=== PATIENT | male | born 1995 | race Caucasian/White ===

== ENCOUNTER 2024-05-02 09:56 | Observation (INO) | payer OTHER, SELFPAY ==
[2024-05-02] VITALS (76 sets, daily range): BP systolic 104–173; BP diastolic 57–101; PULSE 53–80; RESP 13–29; TEMP 36.2–36.9; O2SAT 96–100; BMI 21.7; BMI 21.3
--- NOTE | 2024-05-02 10:16 | DI.RAD.S_ITS ---
PROCEDURE: XR PELVIS 1-2V INDICATIONS: trauma TECHNIQUE: 1 view(s) of the pelvis acquired. COMPARISON: None. FINDINGS: Bones: No fractures or dislocations. No suspicious bony lesions. Soft tissues: Visualized bowel gas pattern is normal. No suspicious soft tissue calcifications. IMPRESSION: No acute bony abnormality. Dictated by: Haroldo Fong M.D. on 05/02/2024 at 10:44 Approved by: Haroldo Fong M.D. on 05/02/2024 at 10:45
--- NOTE | 2024-05-02 10:16 | DI.CT.S_ITS ---
PROCEDURE: CT CHEST ABD PEL W CON INDICATIONS: fall TECHNIQUE: After the administration of intravenous contrast, 5 mm thick sections acquired from the lung apices to the symphysis. 2.5 mm thick coronal and sagittal reformats were acquired. Additional 7 mm thick coronal maximum intensity projection (MIP) reformats acquired through the lungs. Optional 10-minute delayed imaging may be performed from the kidneys to the bladder. For radiation dose reduction, the following was used: automated exposure control, adjustment of mA and/or kV according to patient size. COMPARISON: None. FINDINGS: Image quality: Diagnostic. CHEST: Lower Neck: No enlarged lymph nodes. Thyroid: No thyroid nodules which require sonographic evaluation. Axillae: No enlarged lymph nodes. Chest Wall: No subcutaneous gas. Lungs and Pleura: No pulmonary contusions or lacerations. No acute airspace opacities. No pneumothorax or hemothorax. Mediastinum: No mediastinal hematomas. Heart size is normal. No pericardial effusion. Thoracic aorta and pulmonary arteries demonstrate normal size and enhancement. No mediastinal or hilar adenopathy. Esophagus is normal in caliber. No hiatal hernia. ABDOMEN: Liver: No lacerations. Gallbladder: No radiopaque gallstones or wall thickening. Biliary ducts: No biliary dilation. Pancreas: Homogenous enhancement. Spleen: Homogenous enhancement without laceration or hematoma. Adrenal Glands: Symmetric enhancement. Kidneys and Ureters: Symmetric enhancement. No hydronephrosis. No solid mass. No complex renal cystic lesion which requires follow up. Stomach and Bowel: Normal colonic caliber, without significant wall thickening. Moderate fecal stasis in the colon is seen. Peritoneum: No abnormal intraperitoneal fluid. No free air. Ventral Wall: No hernia. Abdominal Nodes: No retroperitoneal or mesenteric adenopathy by size criteria. Vessels: Aorta and inferior vena cava are normal in size. PELVIS: Pelvic Organs: Unremarkable. Bladder: Normal thickness. Pelvic Nodes: No enlarged lymph nodes. Miscellaneous: No inguinal hernias are seen. Bones: Pelvic ring and hip joints appear intact. No displaced rib fractures. IMPRESSION: No evidence of traumatic injury to the chest, abdomen or pelvis. Dictated by: Madhu Goldsmith M.D. on 05/02/2024 at 10:39 Approved by: Madhu Goldsmith M.D. on 05/02/2024 at 10:41
--- NOTE | 2024-05-02 10:17 | DI.CT.S_ITS ---
PROCEDURE: CT CERVICAL SPINE WO CON INDICATIONS: Trauma TECHNIQUE: Noncontrast 3 mm thick sections acquired from the skull base to the T4 level. Sagittal and coronal reformats were then constructed. For radiation dose reduction, the following was used: automated exposure control, adjustment of mA and/or kV according to patient size. COMPARISON: None. FINDINGS: Image quality: Excellent. Bones: No fractures or dislocations. Visualized superior ribs are intact. Soft tissues: Prevertebral soft tissues are normal in thickness. No paravertebral hematomas. No apical pneumothoraces. IMPRESSION: No displaced fracture or traumatic subluxation. Dictated by: Madhu Goldsmith M.D. on 05/02/2024 at 10:35 Approved by: Madhu Goldsmith M.D. on 05/02/2024 at 10:39
--- NOTE | 2024-05-02 10:17 | DI.CT.S_ITS ---
PROCEDURE: CT HEAD/BRAIN WO CON INDICATIONS: Trauma TECHNIQUE: Noncontrast 4.5 mm thick angled axial sections acquired from the foramen magnum to the vertex, with coronal and sagittal reformats. For radiation dose reduction, the following was used: automated exposure control, adjustment of mA and/or kV according to patient size. COMPARISON: None. FINDINGS: Image quality: Diagnostic. CSF spaces: Basal cisterns are patent. No extra-axial fluid collections. Ventricles are normal in size and shape. Brain: No midline shift. No intracranial masses or hemorrhage. Ronquillo-white matter interface is normal. Skull and face: Calvarium and visualized facial bones are intact, without suspicious lesions. Sinuses: Visualized sinuses and mastoids are clear. IMPRESSION: No acute intracranial pathology. No acute skull fracture. Dictated by: Madhu Goldsmith M.D. on 05/02/2024 at 10:34 Approved by: Madhu Goldsmith M.D. on 05/02/2024 at 10:35
--- NOTE | 2024-05-02 10:27 | EKG_ITS ---
[address] [id number] Test Date: 2024-05-02 Pat Name: Marlo Coon Department: Room: 220 Gender: Male Vp Analysis: JUANITA : 1995 Requested By: Order Number: [id number] Reading MD: Tal Joshua Measurements Intervals [place] Rate: 68 P: 34 WI: 120 QRS: 91 QRSD: 110 T: 60 QT: 426 QTc: 452 Interpretive Statements Normal sinus rhythm Rightward axis Electronically Signed On 05-04-2024 18:28:39 PDT by Tal Joshua
[2024-05-02 10:28] LABS: Add Manual Diff / Slide Review NO; Basophils Absolute Auto 0 /uL (0-100); Basophils Percent Auto 0.6 % (0-2); Eosinophils Absolute Auto 100 /uL (0-450); Eosinophils Percent Auto 1.1 % (2-4); Hematocrit 36.2 % (41-53); Hemoglobin 12.2 g/dL (13.5-17.5); Lymphocytes Absolute Auto 1400 /uL (1100-4500); Lymphocytes Percent Auto 20.3 % (25-40); Mean Corpuscular HGB Conc 33.8 % (30-36); Mean Corpuscular Hemoglobin 26.5 PG (26-34); Mean Corpuscular Volume 78.2 fL (80-100); Monocytes Absolute Auto 700 /uL (0-900); Monocytes Percent Auto 9.8 % (3-14); Neutrophils Absolute Auto 4600 /uL (1500-7000); Neutrophils Percent Auto 68.2 % (50-75); Platelet Count 254 X10^3/uL (150-400); Prothrombin Time 11.7 SECONDS (9.4-12.5); Red Blood Cell Count 4.63 X10^6/uL (4.5-5.9); White Blood Cell Count 6.7 X10^3/uL (4.5-11.0)
[2024-05-02 10:31] LABS: PTT Partial Thromboplastin Tim 36 SECONDS (25.1-36.5)
[2024-05-02] MEDS: ONDANSETRON 4 MG/2 ML INJ IV (10:47)
[2024-05-02] MEDS: fentaNYL 100 MCG/2 ML INJ IV (10:49)
[2024-05-02 10:56] LABS: Appearance Urine UA CLEAR; Bilirubin Urine UA NEGATIVE (NEGATIVE); Color Urine UA YELLOW; Glucose Urine UA NEGATIVE (Negative); Ketones Urine UA NEGATIVE (NEGATIVE); Leukocyte Esterase Urine UA NEGATIVE (NEGATIVE); Nitrite Urine UA NEGATIVE (Negative); Occult Blood Urine UA NEGATIVE (Negative); Protein Urine UA NEGATIVE (Negative); Urobilinogen Urine UA 0.2 E.U./dL (0.2); pH Urine UA 6.5 (4.5-8.0)
[2024-05-02 10:59] LABS: Lactate (Lactic Acid) 1.2 mmol/L (0.7-2.1)
[2024-05-02 11:02] LABS: Alanine Aminotransferase 26 IU/L (<50); Albumin 4.4 g/dL (3.5-5.0); Albumin Globulin Ratio 1.9 (1.0-2.8); Alkaline Phosphatase 55 U/L (38-126); Aspartate Aminotransferase 45 IU/L (17-59); BUN Creatinine Ratio 14.8 (6-22); Bilirubin Total 0.5 mg/dL (0.2-1.3); Blood Urea Nitrogen 13 mg/dL (9-20); Carbon Dioxide 27 mmol/L (22-32); Chloride 103 mmol/L (98-107); Estimated Glomerular Filt Rate > 60 mL/min (>60); Ethanol (ETOH) < 10 mg/dL; Globulin 2.3 g/dL (1.7-4.1); Glucose 83 mg/dL (70-100); HEMOLYSIS 30 (0-50); Lipase 45 U/L (23-300); Potassium 3.6 mmol/L (3.4-5.1); Sodium 137 mmol/L (137-145); Total Protein 6.7 g/dL (6.3-8.2)
--- NOTE | 2024-05-02 11:03 | DI.RAD.S_ITS ---
PROCEDURE: XR WRIST RT 2V INDICATIONS: trauma TECHNIQUE: 3 views of the wrist were acquired. COMPARISON: None. FINDINGS: Bones: No fractures or dislocations. No suspicious bony lesions. Soft tissues: No suspicious soft tissue calcifications. IMPRESSION: No gross acute right wrist fracture or dislocation. Dictated by: Madhu Goldsmith M.D. on 05/02/2024 at 11:34 Approved by: Madhu Goldsmith M.D. on 05/02/2024 at 11:35
[2024-05-02 11:15] LABS: Ur Creatinine Normal (Normal); Ur Specific Gravity Normal (Normal); Urine Amphetamines Negative (Negative); Urine Barbiturates Negative (Negative); Urine Benzodiazepines Negative (Negative); Urine Cocaine Negative (Negative); Urine MDMA Negative (Negative); Urine Methadone Negative (Negative); Urine Methamphetamines Negative (Negative); Urine Opiates Negative (Negative); Urine Oxycodone Negative (Negative); Urine Phencyclidine Negative (Negative); Urine THC Negative (Negative); Urine Tricyclic Antidepressant Negative (Negative); Urine pH Normal (Normal)
[2024-05-02 11:24] LABS: Bacteria Urine None Seen; RBC Urine None Seen (0-5/HPF); Squamous Epithelial Cell Urine None Seen (0-5/HPF); Urine Volume 10mL (spun); WBC Urine None Seen (0-5/HPF)
[2024-05-02 11:25] LABS: Amorphous Sediment Urine 1+; Culture Indicated Urine Cult Not Indicated
--- NOTE | 2024-05-02 11:47 | ED.GENADULT ---
HPI - General Adult General Chief complaint: Trauma Stated complaint: 15-20ft fall Time Seen by Provider: 05/02/24 09:58 Source: EMS Mode of arrival: EMS History of Present Illness HPI narrative: 29-year-old gentleman with only medical history significant for opioid use disorder currently in treatment is stable on 60 mg of Suboxone daily. Was at work, on a 2nd floor roof and ended up falling majority of the injury was to the left hip which is where his main complaint pain is. There was no loss of consciousness no initial hypotension. He has not complaining initially of head or neck pain. On arrival in the emergency department he is immobilized, continued complain of left hip pain in his now noticing some back and neck pain. He is moving all extremities and has sensation with good capillary refill to all extremities Related Data Home Medications Medication Instructions Recorded Confirmed buprenorphine 4 mg-naloxone 1 mg 4 mg sublingual BID 05/02/24 05/02/24 sublingual film buprenorphine 8 mg-naloxone 2 mg 8 mg sublingual DAILY 05/02/24 05/02/24 sublingual film hydroxyzine pamoate 25 mg capsule 25 mg PO DAILY PRN anxiety 05/02/24 05/02/24 prazosin 1 mg capsule 1 mg PO ONCE PM insomnia 05/02/24 05/02/24 trazodone 50 mg tablet 50 mg PO BEDTIME PRN Insomnia 05/02/24 05/02/24 Allergies Allergy/AdvReac Type Severity Reaction Status Date / Time No Known Drug Allergies Allergy Verified 05/02/24 10:15 Review of Systems Review of Systems Narrative: Pertinent positive and negative findings as per HPI Patient History Medical History (Updated 05/02/24 @ 17:08 by Tal Joshua DO) Alcohol use Opiate use Social History (Updated 05/02/24 @ 17:09 by Tal Joshua DO) household members: family Smoking Status: Current every day smoker Smokeless tobacco user: other alcohol intake: former substance use type: opiates and other Smoking Status: Former smoker tobacco type: cigarettes Exam Initial Vital Signs Initial Vital Signs: Vital Signs Temperature 98.4 F 05/02/24 09:45 Pulse Rate 68 05/02/24 09:45 Respiratory Rate 18 05/02/24 09:45 Blood Pressure 166/97 H 05/02/24 09:45 Pulse Oximetry 99 05/02/24 09:45 Oxygen Delivery Method Room Air 05/02/24 09:45 General: Immobilized, alert appropriate, cooperative. HEENT: Moist mucous membranes, normal sclera with reactive pupils, no obvious trauma to the head or face Neck: Immobilized Respiratory: Lungs are clear to auscultation, no wheezing no rales no rhonchi. Full and symmetrical air movement Chest: No obvious abrasions contusions or subcutaneous air Cardiac: Regular rate and rhythm no murmurs no bruits Abdomen: Soft, no distention, no obvious bruising or contusion. Minor tenderness in the left lower quadrant, over the left iliac crest and left flank. No tenderness over pubic symphysis. Remainder of abdomen is soft Spine: Tenderness at approximately T6-T8 and again in the lumbar area related to pelvis and SI joint Skin: Warm and dry, no rashes Neurologic: Grossly neurologically intact with no obvious asymmetries or abnormalities. Moving lower extremities, sensation intact. There was tenderness at the right wrist and that is immobilized. Extremities: Right wrist pain, currently immobilized Psych: Cooperative, appropriate insight and affect Course Orders Ordered: ED Orders 05/02/24 10:38 UA Complete [Urinalysis and Microscopic] Stat Urine Drug Screen, Rapid Stat 05/02/24 11:03 XR wrist RT 2V Stat 05/02/24 12:09 Hemoglobin and Hematocrit Stat 05/02/24 14:12 Consult to Physical Therapy Evaluate & Treat 05/02/24 17:33 Consult to Physical Therapy Evaluate & Treat 05/03/24 05:00 Basic Metabolic Panel DAILY Complete Blood Count AUTO DIFF DAILY Magnesium DAILY 05/04/24 05:00 Basic Metabolic Panel DAILY Complete Blood Count AUTO DIFF DAILY Magnesium DAILY 05/05/24 05:00 Basic Metabolic Panel DAILY Complete Blood Count AUTO DIFF DAILY Magnesium DAILY Acetaminophen (Acetaminophen 325 Mg Tablet) 975 mg PO Q6H [facility] Last Admin: 05/02/24 14:36 Dose: 975 mg Documented By: DKB Buprenorphine/Naloxone (Buprenorphine/Naloxone 8mg/2mg 1 Tab) 1 tab SL QNOON [facility] Buprenorphine/Naloxone (Buprenorphine/Naloxone 8mg/2mg 1 Tab) 0.5 tab SL DAILY@0500,1700 [facility] Last Admin: 05/02/24 18:26 Dose: 0.5 tab Documented By: SB Enoxaparin Sodium (Enoxaparin 40 Mg/0.4 Ml Syringe) 40 mg SUBCUT DAILY [facility] Hydromorphone HCl (Hydromorphone 2 Mg Inj) 2 mg IV Q2H PRN PRN Reason: Breakthrough Pain Naloxone HCl (Naloxone 0.4 Mg/Ml Vial) 0.2 mg IV Q2MIN PRN PRN Reason: Opiate Reversal Naproxen (Naproxen 250 Mg Tablet) 500 mg PO BIDWM [facility] Last Admin: 05/02/24 18:04 Dose: 500 mg Documented By: CORA Oxycodone HCl (Oxycodone Ir 10 Mg Tablet) 10 mg PO Q4HR PRN PRN Reason: Pain, Severe (7-10) Last Admin: 05/02/24 18:04 Dose: 10 mg Documented By: CORA Discontinued Medications Fentanyl (Fentanyl 100 Mcg/2 Ml Inj) 100 mcg IV NOW ONE Stop: 05/02/24 10:16 Last Admin: 05/02/24 10:49 Dose: 100 mcg Documented By: RODRIGUEZ Fentanyl (Fentanyl 100 Mcg/2 Ml Inj) 50 mcg IV Q1H PRN PRN Reason: Pain, Severe (7-10) Last Admin: 05/02/24 12:02 Dose: 50 mcg Documented By: RODRIGUEZ Hydromorphone HCl (Hydromorphone 2 Mg Inj) 2 mg IV Q2H PRN PRN Reason: Pain, Severe (7-10) Hydroxyzine HCl (Hydroxyzine Hcl 25 Mg Tablet) 25 mg PO Q6HR PRN PRN Reason: spasm Last Admin: 05/02/24 14:37 Dose: 25 mg Documented By: SAV Ketorolac Tromethamine (Ketorolac 30 Mg/Ml Vial) 15 mg IV NOW ONE Stop: 05/02/24 14:13 Last Admin: 05/02/24 14:18 Dose: 15 mg Documented By: SAV Ketorolac Tromethamine (Ketorolac 30 Mg/Ml Vial) 15 mg IV NOW ONE Stop: 05/02/24 14:36 Last Admin: 05/02/24 14:49 Dose: Not Given Documented By: SAV Methocarbamol (Methocarbamol 500 Mg Tablet) 750 mg PO NOW ONE Stop: 05/02/24 14:37 Last Admin: 05/02/24 17:55 Dose: Not Given Documented By: CORA Ondansetron HCl (Ondansetron 4 Mg/2 Ml Inj) 4 mg IV NOW ONE Stop: 05/02/24 10:17 Last Admin: 05/02/24 10:47 Dose: 4 mg Documented By: RODRIGUEZ Oxycodone HCl (Oxycodone Ir 5 Mg Tablet) 5 mg PO NOW ONE Stop: 05/02/24 14:37 Last Admin: 05/02/24 15:06 Dose: 5 mg Documented By: SAV Vital Signs Vital signs: Vital Signs - 8 hr 05/02/24 12:00 05/02/24 12:05 05/02/24 12:05 Pulse Rate 66 Respiratory Rate 21 Blood Pressure 126/76 130/75 Pulse Oximetry 98 05/02/24 12:10 05/02/24 12:10 05/02/24 12:15 Pulse Rate 67 Respiratory Rate 24 Blood Pressure 127/76 121/72 Pulse Oximetry 98 05/02/24 12:15 05/02/24 12:20 05/02/24 12:20 Pulse Rate 72 66 Respiratory Rate 24 22 Blood Pressure 121/76 Pulse Oximetry 99 98 05/02/24 12:25 05/02/24 12:25 05/02/24 12:30 Pulse Rate 66 Respiratory Rate 19 Blood Pressure 119/79 132/85 Pulse Oximetry 96 05/02/24 12:30 05/02/24 12:35 05/02/24 12:35 Pulse Rate 65 73 Respiratory Rate 24 Blood Pressure 128/82 Pulse Oximetry 98 99 05/02/24 12:40 05/02/24 12:40 05/02/24 12:45 Pulse Rate 80 Respiratory Rate 20 Blood Pressure 130/86 130/81 Pulse Oximetry 99 05/02/24 12:45 05/02/24 12:50 05/02/24 12:50 Pulse Rate 67 68 Respiratory Rate Blood Pressure 134/84 Pulse Oximetry 97 96 05/02/24 12:55 05/02/24 12:55 05/02/24 13:00 Pulse Rate 70 Respiratory Rate 21 Blood Pressure 118/71 124/73 Pulse Oximetry 99 05/02/24 13:00 05/02/24 13:05 05/02/24 13:05 Pulse Rate 68 66 Respiratory Rate 17 Blood Pressure 128/75 Pulse Oximetry 98 99 05/02/24 13:16 05/02/24 13:17 05/02/24 13:17 Pulse Rate 75 69 Respiratory Rate 17 Blood Pressure 141/76 H Pulse Oximetry 96 97 05/02/24 13:20 05/02/24 13:20 05/02/24 13:25 Pulse Rate 67 Respiratory Rate 17 Blood Pressure 128/73 120/72 Pulse Oximetry 97 05/02/24 13:25 05/02/24 13:30 05/02/24 13:30 Pulse Rate 68 68 Respiratory Rate 21 21 Blood Pressure 123/74 Pulse Oximetry 97 97 05/02/24 13:35 05/02/24 13:35 05/02/24 13:40 Pulse Rate 75 Respiratory Rate Blood Pressure 122/71 134/78 Pulse Oximetry 98 05/02/24 13:40 05/02/24 13:45 05/02/24 13:45 Pulse Rate 79 75 Respiratory Rate 19 Blood Pressure 132/78 Pulse Oximetry 05/02/24 13:50 05/02/24 13:50 05/02/24 13:55 Pulse Rate 68 Respiratory Rate 17 Blood Pressure 132/75 131/81 Pulse Oximetry 05/02/24 13:55 05/02/24 14:00 05/02/24 14:00 Pulse Rate 68 70 Respiratory Rate 19 24 Blood Pressure 124/76 Pulse Oximetry 05/02/24 14:05 05/02/24 14:05 05/02/24 14:10 Pulse Rate 67 Respiratory Rate 21 Blood Pressure 115/69 124/69 Pulse Oximetry 05/02/24 14:10 05/02/24 14:15 05/02/24 14:15 Pulse Rate 66 76 Respiratory Rate 24 16 Blood Pressure 132/81 Pulse Oximetry 05/02/24 14:20 05/02/24 14:20 05/02/24 14:25 Pulse Rate 63 Respiratory Rate 13 Blood Pressure 136/71 130/71 Pulse Oximetry 05/02/24 14:25 05/02/24 14:30 05/02/24 14:30 Pulse Rate 67 69 Respiratory Rate 23 22 Blood Pressure 127/69 Pulse Oximetry 05/02/24 14:35 05/02/24 14:35 05/02/24 14:40 Pulse Rate 70 67 Respiratory Rate 22 22 Blood Pressure 122/76 Pulse Oximetry 05/02/24 14:40 05/02/24 14:45 05/02/24 14:45 Pulse Rate 66 Respiratory Rate 24 Blood Pressure 115/72 115/73 Pulse Oximetry 05/02/24 14:50 05/02/24 14:50 05/02/24 14:55 Pulse Rate 65 Respiratory Rate 23 Blood Pressure 118/73 117/71 Pulse Oximetry 05/02/24 14:55 05/02/24 15:00 05/02/24 15:00 Pulse Rate 66 61 Respiratory Rate 21 22 Blood Pressure 113/64 Pulse Oximetry 05/02/24 15:05 05/02/24 15:05 05/02/24 15:10 Pulse Rate 62 Respiratory Rate 21 Blood Pressure 113/74 113/70 Pulse Oximetry 05/02/24 15:10 05/02/24 15:15 05/02/24 15:15 Pulse Rate 61 65 Respiratory Rate 21 19 Blood Pressure 121/74 Pulse Oximetry 05/02/24 15:20 05/02/24 15:20 05/02/24 15:25 Pulse Rate 62 61 Respiratory Rate 19 17 Blood Pressure 115/70 Pulse Oximetry 05/02/24 15:25 05/02/24 15:30 05/02/24 15:30 Pulse Rate 63 Respiratory Rate 20 Blood Pressure 123/72 114/57 L Pulse Oximetry 05/02/24 15:35 05/02/24 15:35 05/02/24 15:40 Pulse Rate 63 59 L Respiratory Rate 20 23 Blood Pressure 128/83 Pulse Oximetry 05/02/24 15:40 05/02/24 15:45 05/02/24 15:45 Pulse Rate 67 Respiratory Rate 20 Blood Pressure 120/79 125/78 Pulse Oximetry 05/02/24 15:50 05/02/24 15:50 05/02/24 15:55 Pulse Rate 68 Respiratory Rate 25 H Blood Pressure 120/80 115/75 Pulse Oximetry 05/02/24 15:55 05/02/24 16:00 05/02/24 16:00 Pulse Rate 59 L 59 L Respiratory Rate 21 21 Blood Pressure 118/72 Pulse Oximetry 05/02/24 16:05 05/02/24 16:05 05/02/24 16:10 Pulse Rate 61 62 Respiratory Rate 22 20 Blood Pressure 116/70 Pulse Oximetry 05/02/24 16:10 05/02/24 16:15 05/02/24 16:15 Pulse Rate 57 L Respiratory Rate 20 Blood Pressure 117/69 111/64 Pulse Oximetry 05/02/24 16:20 05/02/24 16:20 05/02/24 16:25 Pulse Rate 62 74 Respiratory Rate 13 29 H Blood Pressure 120/75 Pulse Oximetry 05/02/24 16:26 05/02/24 16:26 05/02/24 16:30 Pulse Rate 64 60 Respiratory Rate 17 19 Blood Pressure 130/101 H Pulse Oximetry 05/02/24 16:31 05/02/24 16:31 05/02/24 16:35 Pulse Rate 60 Respiratory Rate 21 Blood Pressure 155/84 H 125/65 Pulse Oximetry 05/02/24 16:35 Pulse Rate 60 Respiratory Rate 21 Blood Pressure Pulse Oximetry Medical Decision Making Lab Data 05/02/24 12:09 05/02/24 10:06 Labs: Lab Results 05/02/24 05/02/24 05/02/24 Range/Units 10:06 10:38 10:38 WBC 6.7 (4.5-11.0) X10^3/uL RBC 4.63 (4.5-5.9) X10^6/uL Hgb 12.2 L (13.5-17.5) g/dL Hct 36.2 L (41-53) % MCV 78.2 L (80-100) fL MCH 26.5 (26-34) PG MCHC 33.8 (30-36) % RDW 13.0 (11.6-14.8) % Plt Count 254 (150-400) X10^3/uL Neut % (Auto) 68.2 (50-75) % Lymph % (Auto) 20.3 L (25-40) % [place] % (Auto) 9.8 (3-14) % Eos % (Auto) 1.1 L (2-4) % Baso % (Auto) 0.6 (0-2) % Neut # (Auto) 4600 (6460-5923) /uL Lymph # (Auto) 1400 (4424-3897) /uL [place] # (Auto) 700 (0-900) /uL Eos # (Auto) 100 (0-450) /uL Baso # (Auto) 0 (0-100) /uL PT 11.7 (9.4-12.5) SECONDS INR 1.0 (0.9-1.3) APTT 36 (25.1-36.5) SECONDS Sodium 137 (137-145) mmol/L Potassium 3.6 (3.4-5.1) mmol/L Chloride 103 (98-107) mmol/L Carbon Dioxide 27 (22-32) mmol/L BUN 13 (9-20) mg/dL Creatinine 0.88 (0.66-1.25) mg/dL Estimated GFR > 60 (>60) mL/min BUN/Creatinine Ratio 14.8 (6-22) Glucose 83 (70-100) mg/dL Lactate 1.2 (0.7-2.1) mmol/L Calcium 9.0 (8.4-10.2) mg/dL Total Bilirubin 0.5 (0.2-1.3) mg/dL AST 45 (17-59) IU/L ALT 26 (<50) IU/L Alkaline Phosphatase 55 (38-126) U/L Total Protein 6.7 (6.3-8.2) g/dL Albumin 4.4 (3.5-5.0) g/dL Globulin 2.3 (1.7-4.1) g/dL Albumin/Globulin Ratio 1.9 (1.0-2.8) Lipase 45 (23-300) U/L Urine Color Yellow Urine Appearance Clear Urine pH 6.5 Normal (4.5-8.0) Ur Specific [place] 1.010 (1.000-1.035) Urine Protein Negative (Negative) Urine Glucose (UA) Negative (Negative) g/dL Urine Ketones Negative (NEGATIVE) Urine Occult Blood Negative (Negative) Urine Nitrate Negative (Negative) Urine Bilirubin Negative (NEGATIVE) Urine Urobilinogen 0.2 (0.2) E.U./dL Ur Leukocyte Esterase Negative (NEGATIVE) Urine RBC None seen (0-5/HPF) Urine WBC None seen (0-5/HPF) Ur Squamous Epith Cells None seen (0-5/HPF) Amorphous Sediment 1+ Urine Bacteria None seen (None) Ur Culture Indicated? Cult not indicated Vol Urine Centrifuged 10ml (spun) U Opiates 300ng/mL cut Negative (Negative) Ur Oxycodone Screen Negative (Negative) Urine Methadone Screen Negative (Negative) Ur Barbiturates Screen Negative (Negative) U Tricyclic Antidepress Negative (Negative) Ur Phencyclidine Scrn Negative (Negative) Ur Amphetamines Screen Negative (Negative) U Methamphetamines Scrn Negative (Negative) Ur MDMA Scrn (Ecstasy) Negative (Negative) U Benzodiazepines Scrn Negative (Negative) Urine Cocaine Screen Negative (Negative) U Marijuana (THC) Screen Negative (Negative) Urine Specific [place] Normal (Normal) Ethyl Alcohol < 10 ( - 10) mg/dL Ur Creatinine Normal (Normal) Blood Type O Negative Antibody Screen Negative 05/02/24 Range/Units 12:09 WBC (4.5-11.0) X10^3/uL RBC (4.5-5.9) X10^6/uL Hgb 12.7 L (13.5-17.5) g/dL Hct 37.5 L (41-53) % MCV (80-100) fL MCH (26-34) PG MCHC (30-36) % RDW (11.6-14.8) % Plt Count (150-400) X10^3/uL Neut % (Auto) (50-75) % Lymph % (Auto) (25-40) % [place] % (Auto) (3-14) % Eos % (Auto) (2-4) % Baso % (Auto) (0-2) % Neut # (Auto) (7636-5045) /uL Lymph # (Auto) (6267-6884) /uL [place] # (Auto) (0-900) /uL Eos # (Auto) (0-450) /uL Baso # (Auto) (0-100) /uL PT (9.4-12.5) SECONDS INR (0.9-1.3) APTT (25.1-36.5) SECONDS Sodium (137-145) mmol/L Potassium (3.4-5.1) mmol/L Chloride (98-107) mmol/L Carbon Dioxide (22-32) mmol/L BUN (9-20) mg/dL Creatinine (0.66-1.25) mg/dL Estimated GFR (>60) mL/min BUN/Creatinine Ratio (6-22) Glucose (70-100) mg/dL Lactate (0.7-2.1) mmol/L Calcium (8.4-10.2) mg/dL Total Bilirubin (0.2-1.3) mg/dL AST (17-59) IU/L ALT (<50) IU/L Alkaline Phosphatase (38-126) U/L Total Protein (6.3-8.2) g/dL Albumin (3.5-5.0) g/dL Globulin (1.7-4.1) g/dL Albumin/Globulin Ratio (1.0-2.8) Lipase (23-300) U/L Urine Color Urine Appearance Urine pH (4.5-8.0) Ur Specific [place] (1.000-1.035) Urine Protein (Negative) Urine Glucose (UA) (Negative) g/dL Urine Ketones (NEGATIVE) Urine Occult Blood (Negative) Urine Nitrate (Negative) Urine Bilirubin (NEGATIVE) Urine Urobilinogen (0.2) E.U./dL Ur Leukocyte Esterase (NEGATIVE) Urine RBC (0-5/HPF) Urine WBC (0-5/HPF) Ur Squamous Epith Cells (0-5/HPF) Amorphous Sediment Urine Bacteria (None) Ur Culture Indicated? Vol Urine Centrifuged U Opiates 300ng/mL cut (Negative) Ur Oxycodone Screen (Negative) Urine Methadone Screen (Negative) Ur Barbiturates Screen (Negative) U Tricyclic Antidepress (Negative) Ur Phencyclidine Scrn (Negative) Ur Amphetamines Screen (Negative) U Methamphetamines Scrn (Negative) Ur MDMA Scrn (Ecstasy) (Negative) U Benzodiazepines Scrn (Negative) Urine Cocaine Screen (Negative) U Marijuana (THC) Screen (Negative) Urine Specific [place] (Normal) Ethyl Alcohol ( - 10) mg/dL Ur Creatinine (Normal) Blood Type Antibody Screen Imaging Data CT chest abdomen pelvis : Radiologist's Impression: ADDENDUMThis report includes an Addendum and supersedes previous reports for this exam. PROCEDURE: CT CHEST ABD PEL W CON INDICATIONS: fall TECHNIQUE: After the administration of intravenous contrast, 5 mm thick sections acquired from the lung apices to the symphysis. 2.5 mm thick coronal and sagittal reformats were acquired. Additional 7 mm thick coronal maximum intensity projection (MIP) reformats acquired through the lungs. Optional 10-minute delayed imaging may be performed from the kidneys to the bladder. For radiation dose reduction, the following was used: automated exposure control, adjustment of mA and/or kV according to patient size. COMPARISON: None. FINDINGS: Image quality: Diagnostic. CHEST: Lower Neck: No enlarged lymph nodes. Thyroid: No thyroid nodules which require sonographic evaluation. Axillae: No enlarged lymph nodes. Chest Wall: No subcutaneous gas. Lungs and Pleura: No pulmonary contusions or lacerations. No acute airspace opacities. No pneumothorax or hemothorax. Mediastinum: No mediastinal hematomas. Heart size is normal. No pericardial effusion. Thoracic aorta and pulmonary arteries demonstrate normal size and enhancement. No mediastinal or hilar adenopathy. Esophagus is normal in caliber. No hiatal hernia. ABDOMEN: Liver: No lacerations. Gallbladder: No radiopaque gallstones or wall thickening. Biliary ducts: No biliary dilation. Pancreas: Homogenous enhancement. Spleen: Homogenous enhancement without laceration or hematoma. Adrenal Glands: Symmetric enhancement. Kidneys and Ureters: Symmetric enhancement. No hydronephrosis. No solid mass. No complex renal cystic lesion which requires follow up. Stomach and Bowel: Normal colonic caliber, without significant wall thickening. Moderate fecal stasis in the colon is seen. Peritoneum: No abnormal intraperitoneal fluid. No free air. Ventral Wall: No hernia. Abdominal Nodes: No retroperitoneal or mesenteric adenopathy by size criteria. Vessels: Aorta and inferior vena cava are normal in size. PELVIS: Pelvic Organs: Unremarkable. Bladder: Normal thickness. Pelvic Nodes: No enlarged lymph nodes. Miscellaneous: No inguinal hernias are seen. Bones: Pelvic ring and hip joints appear intact. No displaced rib fractures. IMPRESSION: No evidence of traumatic injury to the chest, abdomen or pelvis. Dictated by: Madhu Goldsmith M.D. on 05/02/2024 at 10:39 Approved by: Madhu Goldsmith M.D. on 05/02/2024 at 10:41 ADDENDUM: Upon further inspection, there is a slightly displaced oblique fracture involving left inferior pubic ramus best seen on series 18 image 214 and series 13 image 41. Dictated by: Madhu Goldsmith M.D. on 05/02/2024 at 11:12 [facility] Narrative Medical decision making narrative: CC: Standby trauma called 29-year-old gentleman fell 2 stories onto his left hip complaining of hip pain Complicating co-morbidities: Currently on Suboxone, opioid use disorder in remission Data collected from: patient, medic Differential considered: Sequelae of multi-system blunt trauma and fall from greater than 20 ft Exam documented above, pertinent findings include: He is alert and talking. No obvious spinal cord injury/paralysis or paresthesia. Tenderness T6-7 and 8 midline, no subcutaneous air or other thoracic pain. Tender around the entire left hip area without abdominal distention Lab Test results independently reviewed as above. Pertinent findings: CBC shows a white count of 6.7 H&H is 36.2 and 78.2. Platelets are 254 Chemistries are unremarkable with normal liver and renal function PT PTT are both at baseline Lipase is not elevated Urine is unremarkable, no red cells no suggestion of the fact Urine tox screen is negative Alcohol level was undetectable Independently reviewed EKG: Sinus rhythm without acute ischemic changes Imaging studies independently reviewed: CT scan of the head shows no intracranial hemorrhage or obvious fracture CT scan of the cervical spine is unremarkable Initial view of the pelvic x-ray with concerns for SI joint separation and left ischial ring abnormality, radiology interpretation is no acute findings CT scan of the chest abdomen and pelvis shows no abnormalities in the chest or abdomen, slightly displaced oblique fracture involving left inferior pubic ramus Consultations: Discussed with [facility] orthopedic pelvic surgeon, reviewed CT scan agrees that this is a stable fracture with no other concerning abnormalities that would require transfer or additional inpatient care aside from pain control if required. This is a stable fracture and he can begin immediate weight-bearing as tolerated Treatments: Dye catheter is placed with almost a L of urine out Re-evaluations: With the attempting to stand patient had some tenderness with sitting but was not able to put any weight at all on the left side even with assistance with a walker. Discussion: 29-year-old gentleman fell from 2nd floor landing on his left hip left hip pain. Thorough workup including CT scans of the head cervical spine chest abdomen and pelvis show only a mildly displaced oblique fracture of the left inferior pubic ramus. No evidence of internal bleeding, not reporting any loss of consciousness with the initial event. Shared decision-making with patient indicates that given his degree of pain with any immobilization he would prefer to spend an evening hospital to make sure that pain is appropriately controlled, physical therapy help in managing with a walker and suggestions for discharge home. For pain control We talked about Suboxone. I recommended continued IV fentanyl if needed in the emergency department and through the evening emergency department to actually work for pain control. I would recommend his 16 mg of Suboxone in the morning and and transitioning to scheduled Naprosyn b.i.d. with Tylenol q.6. Vistaril as an option for muscle spasm. I did recommend he add an additional 8 mg of Suboxone purely for pain control over the next week in the evening. Patient was in agreement with this potential. He very much wants to avoid narcotics beyond his Suboxone. He does have a pain contract for 30 days of Suboxone with his psychiatrist, recommended that he contact his psychiatrist given current recommendations, he will need early Suboxone refill. Discussed with Dr. Tang, surgery, Dr. Joshua internal Medicine, they will coordinate who will be admitting and who will be consulting. This is an L and I injury and L and I forms are filled out Critical Care Time Critical Care Time Critical Care Time: Yes Total Critical Care Time: 36 Attestation: Critical care time is separate from other billable procedures. There is a high probability of a significant, sudden or life-threatening deterioration that requires my full and direct attention, intervention and personal management. This critical care time includes consultation with family and other consulting doctors, review of records, and interpretation of data from labs, EKGs and imaging as well as managements of trauma Discharge Plan Departure Patient Disposition: Admitted as Observation Clinical Impression: Closed fracture of pubic ramus Qualifiers: Encounter type: initial encounter Laterality: left Qualified Code(s): S32.592A - Other specified fracture of left pubis, initial encounter for closed fracture Fall from roof Qualifiers: Encounter type: initial encounter Qualified Code(s): W13.2XXA - Fall from, out of or through roof, initial encounter Right wrist sprain Qualifiers: Encounter type: initial encounter Qualified Code(s): S63.501A - Unspecified sprain of right wrist, initial encounter Admit Date/Time: 05/02/24 16:37 Admit Provider: Tal Joshua
[2024-05-02] MEDS: fentaNYL 100 MCG/2 ML INJ 50 MCG IV (12:02)
[2024-05-02 12:15] LABS: Hematocrit 37.5 % (41-53); Hemoglobin 12.7 g/dL (13.5-17.5)
--- NOTE | 2024-05-02 13:19 | PC.NURSE ---
Patient was able to sit on side of bed, moving from laying to sitting cause minor discomfort. Patient was able to stand with 2WW but stated That hurts, it feels like a shooting pain in my groin to my left hip. Patient was unable to walk, MD aware.
[2024-05-02] MEDS: KETOROLAC 30 MG/ML VIAL 15 MG IV (14:18)
[2024-05-02] MEDS: ACETAMINOPHEN 325 MG TABLET 975 MG PO ×2 (14:36→21:18)
[2024-05-02] MEDS: hydrOXYzine HCL 25 MG TABLET PO (14:37)
--- NOTE | 2024-05-02 15:04 | PM.CALLCOV.1 ---
Call Coverage Note Note Narrative of Care Provided: 29 M with PMH of OUD on suboxone presents after a fall. Has a mildly displaced pubic ramus fracture. In order to meet criteria for admission, please attempt oral pain control measures in the emergency room. These appear to have been given just after 2:30. I will re-evaluate the patient after administration, if still with uncontrolled pain would meet observation criteria for pain management.
[2024-05-02] MEDS: OXYCODONE IR 5 MG TABLET PO (15:06)
--- NOTE | 2024-05-02 16:51 | PM.HP.1 ---
History of Present Illness History of Present Illness Date Patient Seen: 05/02/24 Time Patient Seen: 16:51 Chief complaint: 15-20ft fall Narrative: This is a 29 year old male with PMH of opiate use on suboxone therapy, prior EtOH use (last drink 3 mo ago) who presents after a fall from 15-20 feet. He fell onto his left side. He has left groin pain with movement, though improving since arrival to the ER. Workup only notable for a mildly displaced left inferior pubic ramus fracture, no seen on pelvis Xray but on CT. In the emergency room, he received an IV push of fentanyl, medicine was asked to evaluate for admission after that. Attempted additional oral pain medications, as patient is not willing to do oral opiates due to suboxone use and concern for addiction. He received 975 mg tylenol, hydroxyzine, robaxin, and toradol. After these medications, patient was able to stand with a walker, but still 9/10 pain on the L groin. [facility] Medical History (Updated 05/02/24 @ 17:08 by Tal Joshua DO) Alcohol use Opiate use Social History (Updated 05/02/24 @ 17:09 by Tal Joshua DO) Smoking Status: Current every day smoker Smokeless tobacco user: other alcohol intake: former substance use type: opiates and other Meds Home Medications and Allergies Allergies Allergy/AdvReac Type Severity Reaction Status Date / Time No Known Drug Allergies Allergy Verified 05/02/24 10:15 Review of Systems Review of Systems Narrative: All other systems reviewed with the patient and are negative unless otherwise stated. Exam Vital Signs (past 8 hours): - 05/02/24 09:45 05/02/24 10:00 05/02/24 10:01 Temperature 98.4 F Pulse Rate 68 68 Respiratory Rate 18 Blood Pressure 166/97 H 150/90 H Pulse Oximetry 99 99 Oxygen Delivery Method Room Air 05/02/24 10:01 05/02/24 10:23 05/02/24 10:23 Temperature Pulse Rate 68 71 Respiratory Rate 14 20 Blood Pressure 139/88 Pulse Oximetry 100 Oxygen Delivery Method 05/02/24 10:24 05/02/24 10:25 05/02/24 10:25 Temperature Pulse Rate 69 67 Respiratory Rate 22 22 Blood Pressure 132/83 Pulse Oximetry 97 Oxygen Delivery Method Room Air 05/02/24 10:30 05/02/24 10:30 05/02/24 10:35 Temperature Pulse Rate 70 66 Respiratory Rate 20 13 Blood Pressure 138/87 Pulse Oximetry Oxygen Delivery Method 05/02/24 10:36 05/02/24 10:36 05/02/24 10:40 Temperature 98.4 F Pulse Rate 68 Respiratory Rate 13 Blood Pressure 173/95 H 145/89 H Pulse Oximetry Oxygen Delivery Method 05/02/24 10:40 05/02/24 10:42 05/02/24 10:42 Temperature Pulse Rate 66 65 Respiratory Rate 16 17 Blood Pressure 152/93 H Pulse Oximetry 98 Oxygen Delivery Method 05/02/24 10:45 05/02/24 10:45 05/02/24 10:50 Temperature Pulse Rate 66 65 Respiratory Rate 20 20 Blood Pressure 140/84 Pulse Oximetry 98 98 Oxygen Delivery Method 05/02/24 10:50 05/02/24 10:55 05/02/24 10:55 Temperature Pulse Rate 66 Respiratory Rate 19 Blood Pressure 132/80 123/73 Pulse Oximetry 98 Oxygen Delivery Method 05/02/24 12:00 05/02/24 12:05 05/02/24 12:05 Temperature Pulse Rate 66 Respiratory Rate 21 Blood Pressure 126/76 130/75 Pulse Oximetry 98 Oxygen Delivery Method 05/02/24 12:10 05/02/24 12:10 05/02/24 12:15 Temperature Pulse Rate 67 Respiratory Rate 24 Blood Pressure 127/76 121/72 Pulse Oximetry 98 Oxygen Delivery Method 05/02/24 12:15 05/02/24 12:20 05/02/24 12:20 Temperature Pulse Rate 72 66 Respiratory Rate 24 22 Blood Pressure 121/76 Pulse Oximetry 99 98 Oxygen Delivery Method 05/02/24 12:25 05/02/24 12:25 05/02/24 12:30 Temperature Pulse Rate 66 Respiratory Rate 19 Blood Pressure 119/79 132/85 Pulse Oximetry 96 Oxygen Delivery Method 05/02/24 12:30 05/02/24 12:35 05/02/24 12:35 Temperature Pulse Rate 65 73 Respiratory Rate 24 Blood Pressure 128/82 Pulse Oximetry 98 99 Oxygen Delivery Method 05/02/24 12:40 05/02/24 12:40 05/02/24 12:45 Temperature Pulse Rate 80 Respiratory Rate 20 Blood Pressure 130/86 130/81 Pulse Oximetry 99 Oxygen Delivery Method 05/02/24 12:45 05/02/24 12:50 05/02/24 12:50 Temperature Pulse Rate 67 68 Respiratory Rate Blood Pressure 134/84 Pulse Oximetry 97 96 Oxygen Delivery Method 05/02/24 12:55 05/02/24 12:55 05/02/24 13:00 Temperature Pulse Rate 70 Respiratory Rate 21 Blood Pressure 118/71 124/73 Pulse Oximetry 99 Oxygen Delivery Method 05/02/24 13:00 05/02/24 13:05 05/02/24 13:05 Temperature Pulse Rate 68 66 Respiratory Rate 17 Blood Pressure 128/75 Pulse Oximetry 98 99 Oxygen Delivery Method 05/02/24 13:16 05/02/24 13:17 05/02/24 13:17 Temperature Pulse Rate 75 69 Respiratory Rate 17 Blood Pressure 141/76 H Pulse Oximetry 96 97 Oxygen Delivery Method 05/02/24 13:20 05/02/24 13:20 05/02/24 13:25 Temperature Pulse Rate 67 Respiratory Rate 17 Blood Pressure 128/73 120/72 Pulse Oximetry 97 Oxygen Delivery Method 05/02/24 13:25 05/02/24 13:30 05/02/24 13:30 Temperature Pulse Rate 68 68 Respiratory Rate 21 21 Blood Pressure 123/74 Pulse Oximetry 97 97 Oxygen Delivery Method 05/02/24 13:35 05/02/24 13:35 05/02/24 13:40 Temperature Pulse Rate 75 Respiratory Rate Blood Pressure 122/71 134/78 Pulse Oximetry 98 Oxygen Delivery Method 05/02/24 13:40 05/02/24 13:45 05/02/24 13:45 Temperature Pulse Rate 79 75 Respiratory Rate 19 Blood Pressure 132/78 Pulse Oximetry Oxygen Delivery Method 05/02/24 13:50 05/02/24 13:50 05/02/24 13:55 Temperature Pulse Rate 68 Respiratory Rate 17 Blood Pressure 132/75 131/81 Pulse Oximetry Oxygen Delivery Method 05/02/24 13:55 05/02/24 14:00 05/02/24 14:00 Temperature Pulse Rate 68 70 Respiratory Rate 19 24 Blood Pressure 124/76 Pulse Oximetry Oxygen Delivery Method 05/02/24 14:05 05/02/24 14:05 05/02/24 14:10 Temperature Pulse Rate 67 Respiratory Rate 21 Blood Pressure 115/69 124/69 Pulse Oximetry Oxygen Delivery Method 05/02/24 14:10 05/02/24 14:15 05/02/24 14:15 Temperature Pulse Rate 66 76 Respiratory Rate 24 16 Blood Pressure 132/81 Pulse Oximetry Oxygen Delivery Method 05/02/24 14:20 05/02/24 14:20 05/02/24 14:25 Temperature Pulse Rate 63 Respiratory Rate 13 Blood Pressure 136/71 130/71 Pulse Oximetry Oxygen Delivery Method 05/02/24 14:25 05/02/24 14:30 05/02/24 14:30 Temperature Pulse Rate 67 69 Respiratory Rate 23 22 Blood Pressure 127/69 Pulse Oximetry Oxygen Delivery Method 05/02/24 14:35 05/02/24 14:35 05/02/24 14:40 Temperature Pulse Rate 70 67 Respiratory Rate 22 22 Blood Pressure 122/76 Pulse Oximetry Oxygen Delivery Method 05/02/24 14:40 05/02/24 14:45 05/02/24 14:45 Temperature Pulse Rate 66 Respiratory Rate 24 Blood Pressure 115/72 115/73 Pulse Oximetry Oxygen Delivery Method 05/02/24 14:50 05/02/24 14:50 05/02/24 14:55 Temperature Pulse Rate 65 Respiratory Rate 23 Blood Pressure 118/73 117/71 Pulse Oximetry Oxygen Delivery Method 05/02/24 14:55 05/02/24 15:00 05/02/24 15:00 Temperature Pulse Rate 66 61 Respiratory Rate 21 22 Blood Pressure 113/64 Pulse Oximetry Oxygen Delivery Method 05/02/24 15:05 05/02/24 15:05 05/02/24 15:10 Temperature Pulse Rate 62 Respiratory Rate 21 Blood Pressure 113/74 113/70 Pulse Oximetry Oxygen Delivery Method 05/02/24 15:10 05/02/24 15:15 05/02/24 15:15 Temperature Pulse Rate 61 65 Respiratory Rate 21 19 Blood Pressure 121/74 Pulse Oximetry Oxygen Delivery Method 05/02/24 15:20 05/02/24 15:20 05/02/24 15:25 Temperature Pulse Rate 62 61 Respiratory Rate 19 17 Blood Pressure 115/70 Pulse Oximetry Oxygen Delivery Method 05/02/24 15:25 05/02/24 15:30 05/02/24 15:30 Temperature Pulse Rate 63 Respiratory Rate 20 Blood Pressure 123/72 114/57 L Pulse Oximetry Oxygen Delivery Method 05/02/24 15:35 05/02/24 15:35 05/02/24 15:40 Temperature Pulse Rate 63 59 L Respiratory Rate 20 23 Blood Pressure 128/83 Pulse Oximetry Oxygen Delivery Method 05/02/24 15:40 05/02/24 15:45 05/02/24 15:45 Temperature Pulse Rate 67 Respiratory Rate 20 Blood Pressure 120/79 125/78 Pulse Oximetry Oxygen Delivery Method 05/02/24 15:50 05/02/24 15:50 05/02/24 15:55 Temperature Pulse Rate 68 Respiratory Rate 25 H Blood Pressure 120/80 115/75 Pulse Oximetry Oxygen Delivery Method 05/02/24 15:55 05/02/24 16:00 05/02/24 16:00 Temperature Pulse Rate 59 L 59 L Respiratory Rate 21 21 Blood Pressure 118/72 Pulse Oximetry Oxygen Delivery Method 05/02/24 16:05 05/02/24 16:05 05/02/24 16:10 Temperature Pulse Rate 61 62 Respiratory Rate 22 20 Blood Pressure 116/70 Pulse Oximetry Oxygen Delivery Method 05/02/24 16:10 05/02/24 16:15 05/02/24 16:15 Temperature Pulse Rate 57 L Respiratory Rate 20 Blood Pressure 117/69 111/64 Pulse Oximetry Oxygen Delivery Method 05/02/24 16:20 05/02/24 16:20 05/02/24 16:25 Temperature Pulse Rate 62 74 Respiratory Rate 13 29 H Blood Pressure 120/75 Pulse Oximetry Oxygen Delivery Method 05/02/24 16:26 05/02/24 16:26 05/02/24 16:30 Temperature Pulse Rate 64 60 Respiratory Rate 17 19 Blood Pressure 130/101 H Pulse Oximetry Oxygen Delivery Method 05/02/24 16:31 05/02/24 16:31 05/02/24 16:35 Temperature Pulse Rate 60 Respiratory Rate 21 Blood Pressure 155/84 H 125/65 Pulse Oximetry Oxygen Delivery Method 05/02/24 16:35 05/02/24 16:40 05/02/24 16:40 Temperature Pulse Rate 60 59 L Respiratory Rate 21 23 Blood Pressure 130/73 Pulse Oximetry Oxygen Delivery Method 05/02/24 16:45 05/02/24 16:45 Temperature Pulse Rate 56 L Respiratory Rate 15 Blood Pressure 131/68 Pulse Oximetry Oxygen Delivery Method Oxygen Delivery Method Room Air Narrative Exam Narrative: General:? Patient is well developed and well nourished, in no distress at this time. Chest:? Normal AP diameter and contour without kyphoscoliosis, no tachypnea, equal chest rise bilaterally. Lungs:? CTA b/l no wheezing rhonchi or rales. Cardio:?RRR no m/r/g. Abdomen: S NT ND. Musculoskeletal:? Muscle strength and tone are equal within normal limits, no deformity. Extremities: No edema or joint effusions. No cyanosis or clubbing. Skin:? Pale,? Warm to touch,dry and intact without rashes, ulcerations or petechiae.? Objective Imaging CT scan - pelvis: Radiologist's impression: ADDENDUM: Upon further inspection, there is a slightly displaced oblique fracture involving left inferior pubic ramus best seen on series 18 image 214 and series 13 image 41. INDICATIONS: fall TECHNIQUE: After the administration of intravenous contrast, 5 mm thick sections acquired from the lung apices to the symphysis. 2.5 mm thick coronal and sagittal reformats were acquired. Additional 7 mm thick coronal maximum intensity projection (MIP) reformats acquired through the lungs. Optional 10-minute delayed imaging may be performed from the kidneys to the bladder. For radiation dose reduction, the following was used: automated exposure control, adjustment of mA and/or kV according to patient size. COMPARISON: None. FINDINGS: Image quality: Diagnostic. CHEST: Lower Neck: No enlarged lymph nodes. Thyroid: No thyroid nodules which require sonographic evaluation. Axillae: No enlarged lymph nodes. Chest Wall: No subcutaneous gas. Lungs and Pleura: No pulmonary contusions or lacerations. No acute airspace opacities. No pneumothorax or hemothorax. Mediastinum: No mediastinal hematomas. Heart size is normal. No pericardial effusion. Thoracic aorta and pulmonary arteries demonstrate normal size and enhancement. No mediastinal or hilar adenopathy. Esophagus is normal in caliber. No hiatal hernia. ABDOMEN: Liver: No lacerations. Gallbladder: No radiopaque gallstones or wall thickening. Biliary ducts: No biliary dilation. Pancreas: Homogenous enhancement. Spleen: Homogenous enhancement without laceration or hematoma. Adrenal Glands: Symmetric enhancement. Kidneys and Ureters: Symmetric enhancement. No hydronephrosis. No solid mass. No complex renal cystic lesion which requires follow up. Stomach and Bowel: Normal colonic caliber, without significant wall thickening. Moderate fecal stasis in the colon is seen. Peritoneum: No abnormal intraperitoneal fluid. No free air. Ventral Wall: No hernia. Abdominal Nodes: No retroperitoneal or mesenteric adenopathy by size criteria. Vessels: Aorta and inferior vena cava are normal in size. PELVIS: Pelvic Organs: Unremarkable. Bladder: Normal thickness. Pelvic Nodes: No enlarged lymph nodes. Miscellaneous: No inguinal hernias are seen. Bones: Pelvic ring and hip joints appear intact. No displaced rib fractures. IMPRESSION: No evidence of traumatic injury to the chest, abdomen or pelvis. Dictated by: Madhu Goldsmith M.D. on 05/02/2024 at 10:39 Approved by: Madhu Goldsmith M.D. on 05/02/2024 at 10:41 Labs 05/02/24 12:09 05/02/24 10:06 Labs: Laboratory Results - last 24 hr 05/02/24 05/02/24 05/02/24 10:06 10:38 10:38 WBC 6.7 RBC 4.63 Hgb 12.2 L Hct 36.2 L MCV 78.2 L MCH 26.5 MCHC 33.8 RDW 13.0 Plt Count 254 Neut % (Auto) 68.2 Lymph % (Auto) 20.3 L [place] % (Auto) 9.8 Eos % (Auto) 1.1 L Baso % (Auto) 0.6 Neut # (Auto) 4600 Lymph # (Auto) 1400 [place] # (Auto) 700 Eos # (Auto) 100 Baso # (Auto) 0 PT 11.7 INR 1.0 APTT 36 Sodium 137 Potassium 3.6 Chloride 103 Carbon Dioxide 27 BUN 13 Creatinine 0.88 Estimated GFR > 60 BUN/Creatinine Ratio 14.8 Glucose 83 Lactate 1.2 Calcium 9.0 Total Bilirubin 0.5 AST 45 ALT 26 Alkaline Phosphatase 55 Total Protein 6.7 Albumin 4.4 Globulin 2.3 Albumin/Globulin Ratio 1.9 Lipase 45 Urine Color Yellow Urine Appearance Clear Urine pH 6.5 Normal Ur Specific [place] 1.010 Urine Protein Negative Urine Glucose (UA) Negative Urine Ketones Negative Urine Occult Blood Negative Urine Nitrate Negative Urine Bilirubin Negative Urine Urobilinogen 0.2 Ur Leukocyte Esterase Negative Urine RBC None seen Urine WBC None seen Ur Squamous Epith Cells None seen Amorphous Sediment 1+ Urine Bacteria None seen Ur Culture Indicated? Cult not indicated Vol Urine Centrifuged 10ml (spun) U Opiates 300ng/mL cut Negative Ur Oxycodone Screen Negative Urine Methadone Screen Negative Ur Barbiturates Screen Negative U Tricyclic Antidepress Negative Ur Phencyclidine Scrn Negative Ur Amphetamines Screen Negative U Methamphetamines Scrn Negative Ur MDMA Scrn (Ecstasy) Negative U Benzodiazepines Scrn Negative Urine Cocaine Screen Negative U Marijuana (THC) Screen Negative Urine Specific [place] Normal Ethyl Alcohol < 10 Ur Creatinine Normal Blood Type O Negative Antibody Screen Negative 05/02/24 12:09 WBC RBC Hgb 12.7 L Hct 37.5 L MCV MCH MCHC RDW Plt Count Neut % (Auto) Lymph % (Auto) [place] % (Auto) Eos % (Auto) Baso % (Auto) Neut # (Auto) Lymph # (Auto) [place] # (Auto) Eos # (Auto) Baso # (Auto) PT INR APTT Sodium Potassium Chloride Carbon Dioxide BUN Creatinine Estimated GFR BUN/Creatinine Ratio Glucose Lactate Calcium Total Bilirubin AST ALT Alkaline Phosphatase Total Protein Albumin Globulin Albumin/Globulin Ratio Lipase Urine Color Urine Appearance Urine pH Ur Specific [place] Urine Protein Urine Glucose (UA) Urine Ketones Urine Occult Blood Urine Nitrate Urine Bilirubin Urine Urobilinogen Ur Leukocyte Esterase Urine RBC Urine WBC Ur Squamous Epith Cells Amorphous Sediment Urine Bacteria Ur Culture Indicated? Vol Urine Centrifuged U Opiates 300ng/mL cut Ur Oxycodone Screen Urine Methadone Screen Ur Barbiturates Screen U Tricyclic Antidepress Ur Phencyclidine Scrn Ur Amphetamines Screen U Methamphetamines Scrn Ur MDMA Scrn (Ecstasy) U Benzodiazepines Scrn Urine Cocaine Screen U Marijuana (THC) Screen Urine Specific [place] Ethyl Alcohol Ur Creatinine Blood Type Antibody Screen Assessment & Plan Assessment & Plan narrative: 1. Mildly displaced L inferior pubic ramus fx, present on admission, traumatic due to fall from height - uncontrolled pain and limited ambulation despite oral pain medications, complicated by hx of opiate use on suboxone. - continue tylenol scheduled, NSAID with naproxen, muscle relaxant. 2mg IV dilaudid prn for breakthrough / severe pain, but currently limited to weight bearing. - consider gabapentin initially, continue home suboxone which is 4/1 in AM and PM, 8/2 at noon. - appreciate surgery consultation, discussed with surgeon retort or condenser press operator. Patient is WBAT, surgeon may discuss with anesthesia about possible nerve block. - repeat h/h stable, hemodynamically stable. No significant electrolyte abnormalities. 2. Opiate use on Suboxone - continue home suboxone 4/1 AM and PM, 8/2 mg at noon. - dilaudid prn as above. May need to adjust dosing. Code: Full, surrogate he lists as Fouzia DVT: Lovenox daily I have utilized all available immediate resources to obtain, update, or review the patient's current medications. Dispo: patient admitted under observation status. PT/OT evaluations pending, likely discharge home in 1-2 days. Additional history obtained via discussions with the ER provider and surgeon. These discussions contributed to the creation of the above assessment and plan. I have reviewed patient's presenting documentation, labs, and imaging personally. Time-Based Coding :: [TOTAL MINUTES] spent with patient and on the chart (including review of chart, obtaining history, exam, reviewing outside data, placing orders, documenting exam and treatment plan, and counseling patient) on [DATE].
[2024-05-02] MEDS: OXYCODONE IR 10 MG TABLET PO (18:04)
[2024-05-02] MEDS: NAPROXEN 250 MG TABLET 500 MG PO (18:04)
[2024-05-02] MEDS: BUPRENORPHINE/NALOXONE 8MG/2MG 1 TAB 0.5 TAB SL (18:26)
[2024-05-03 04:00] VITALS: BP 125/89; PULSE 49; RESP 16; TEMP 36.2; O2SAT 98
[2024-05-03] MEDS: ACETAMINOPHEN 325 MG TABLET 975 MG PO ×2 (04:52→09:07)
[2024-05-03] MEDS: BUPRENORPHINE/NALOXONE 8MG/2MG 1 TAB 0.5 TAB SL (04:53)
--- NOTE | 2024-05-03 05:51 | PC.NURSE ---
Pt ambulated to bathroom stby ass/FWW twice. Per pt, pain controlled adequately with tylenol and suboxone.
[2024-05-03 06:25] LABS: Add Manual Diff / Slide Review NO; Basophils Absolute Auto 0 /uL (0-100); Basophils Percent Auto 0.7 % (0-2); Eosinophils Absolute Auto 100 /uL (0-450); Eosinophils Percent Auto 2.2 % (2-4); Hematocrit 37.1 % (41-53); Hemoglobin 12.5 g/dL (13.5-17.5); Lymphocytes Absolute Auto 2100 /uL (1100-4500); Lymphocytes Percent Auto 37.7 % (25-40); Mean Corpuscular HGB Conc 33.8 % (30-36); Mean Corpuscular Hemoglobin 26.3 PG (26-34); Mean Corpuscular Volume 77.8 fL (80-100); Monocytes Absolute Auto 700 /uL (0-900); Monocytes Percent Auto 12.2 % (3-14); Neutrophils Absolute Auto 2600 /uL (1500-7000); Neutrophils Percent Auto 47.2 % (50-75); Platelet Count 235 X10^3/uL (150-400); Red Blood Cell Count 4.77 X10^6/uL (4.5-5.9); Red Cell Distribution Width 13.4 % (11.6-14.8); White Blood Cell Count 5.4 X10^3/uL (4.5-11.0)
[2024-05-03 06:36] LABS: BUN Creatinine Ratio 16.3 (6-22); Blood Urea Nitrogen 14 mg/dL (9-20); Calcium 8.7 mg/dL (8.4-10.2); Carbon Dioxide 28 mmol/L (22-32); Chloride 103 mmol/L (98-107); Estimated Glomerular Filt Rate > 60 mL/min (>60); Glucose 93 mg/dL (70-100); HEMOLYSIS < 15 (0-50); Potassium 3.5 mmol/L (3.4-5.1); Sodium 139 mmol/L (137-145)
[2024-05-03] MEDS: OXYCODONE IR 10 MG TABLET PO ×2 (07:24→11:37)
[2024-05-03 08:00] VITALS: BP 125/79; PULSE 72; RESP 14; TEMP 36.5; O2SAT 95
[2024-05-03] MEDS: NAPROXEN 250 MG TABLET 500 MG PO (09:07)
[2024-05-03] MEDS: ENOXAPARIN 40 MG/0.4 ML SYRINGE SUBCUT (09:08)
--- NOTE | 2024-05-03 10:35 | PT.IIE ---
Current Diagnoses Other specified fracture of left pubis, initial encounter for closed fracture (05/02/24) Fall from, out of or through roof, initial encounter (05/02/24) Medical History (Last Updated 05/02/24 @ 17:08 by Tal Joshua DO) Alcohol use Opiate use Physical Therapy Inpatient Evaluation/Re-Eval M1 PT/OT-IP Prior Functional Status Start: 05/03/24 13:12 Freq: NEEDED Status: Active Protocol: Document 05/03/24 10:35 AB (Rec: 05/03/24 13:24 AB [id number]) Medical Review Prior Functional Status Medical History Reviewed Yes Communication able to make needs known Mobility and Gait pt stated that he is independent with all mobilities and ambulation without AD Social History Household Members family Living Arrangements Apartment/Condo Number of Floors (Floors) One Floor Number of Stairs To Enter/Railing? 2nd floor apartment with 10 steps B rails to get to the 2nd floor Home Environment Standard Height Toilet,Tub/ Shower Home Equipment Hand Held Shower Employment Status Motorized [employer] Employed Additional Social History Comment pt works in construction pt will have his daughter, daughter's mom assist him initially and mom will assist after M2 PT-IP Current Condition Start: 05/03/24 13:12 Freq: NEEDED Status: Active Protocol: Document 05/03/24 10:35 AB (Rec: 05/03/24 13:24 AB [id number]) Physical Therapy Current Condition Current Condition Evaluation Date 05/03/24 Treatment Diagnosis L pelvic fx; difficulty in walking Onset Date 05/02/24 M3 PT-IP Subjective Start: 05/03/24 13:12 Freq: NEEDED Status: Active Protocol: Document 05/03/24 10:35 AB (Rec: 05/03/24 13:24 AB [id number]) Subjective Physical Therapy Visit Type Type Initial Evaluation Visit Start Time 10:35 Visit Stop Time 11:30 Number of SNELLER HAND Visits 0 Physical Therapy Visit Comments Patient Comments agreeable to do PT Therapy Pain Assessment Pain When Pain Assessed At Rest Pain Present Pain Present Pain Reported Location Anterior Groin Intensity 7 Scale Used Numeric (0 - 10) Pain Management Techniques Apply Cold,Distraction, Modification of Treatment,Re- positioning,Timing of Activity with Medications M4 PT-IP Mobility and Gait Start: 05/03/24 13:12 Freq: NEEDED Status: Active Protocol: Document 05/03/24 10:35 AB (Rec: 05/03/24 13:24 AB [id number]) PT-Bed Mobility Assessment Supine to Sit Supine to Sit Standby Assistance PT-Transfer Assessment Sit to and From Stand Sit to and from Stand 1 Person Assistance,Use of Upper Extremities Equipment Transfer Assistive Device Gait Belt,Front Wheeled Walker ,Axillary Crutches Orthotic/Prosthetic Devices or Brace: No Transfers Transfer Destination Chair Transfer Technique ambulated Transfer Ability Level of Assist Standby Assistance,Use of Upper Extremities Comments Mobility Comments pt in bed and agreeable to do PT. obtained PLOF and home setup. BP: 123/71. completed supine to sit SBA. able to sit on EOB SBA. sit to stand SBA and ambulated in room using FWW sBA ~ 20 ft. pt sat on the chair. agreed to ambulate using B axillary crutches. educated pt on how to use crutches. sit to stand SBA and ambulated in room using crutches SBA. pt agreed to do stairs. ambulated in the hallway using crutches SBA ~ 125 ft SBA. educated pt on how to do stairs with use of crutches + 1 rail. pt completed SBA. assisted pt back into pt's room. pt ambulated using crutches to chair SBA. positioned pt on the chair. call light and table next to pt. pt wants crutches dispensed to him through the hospital. PT obtained orders for crutches. dispensed crutches to pt. pt signed papers. Gait Assessment Gait Gait Assistance Required: Standby Assistance Distance (Feet) 125 Able to Maintain Weight Bearing Status Yes During Gait Assistive Devices Assistive Device Gait Belt,Front Wheeled Walker ,Axillary Crutches Orthotic/Prosthetic Devices or Brace: No Gait Deviations General Gait Pattern Decreased Stride Length, Decreased Feet Clearance Factors Limiting Gait Function Factors Limiting Gait Function Decreased Activity Tolerance, Decreased Strength,Limited Range of Motion,Pain,Poor Balance,Respiratory Distress Stair Climbing Assessment Evaluation Level of Assist On Stairs Standby Assistance Devices Stair Climbing Assistive Devices Axillary Crutches,Left Railing Technique/Endurance Stair Climbing Direction Ascend and Descend Stair Climbing Technique Step to Step Number of Steps Climbed 3 Query Text: Stair Climbing Set # Repetitions (reps) 1 PT-Balance Assessment Sitting Balance and Reactions Static Sitting Balance Ability Normal Dynamic Sitting Balance Ability Normal Standing Balance and Reactions Static Standing Balance Ability Good Dynamic Standing Balance Ability Fair Device Used crutches M5 PT-IP Objective Assessments Start: 05/03/24 13:12 Freq: NEEDED Status: Active Protocol: Document 05/03/24 10:35 AB (Rec: 05/03/24 13:24 AB [id number]) Orientation Orientation/Cognition Level of Alertness Alert Orientation Name,Age,Birthday,Month,Date, Year,Day of Week,Place, Situation Language Function Ability No Deficits Noted Safety Awareness Understands Safety Issues Memory Description No Deficits Noted Gross Range of Motion Lower Extremity ROM Assessment Within Functional Limits Strength Lower Extremity Strength Assessment Within Functional Limits Muscle Tone Muscle Tone WNL Yes M6 PT-IP Treatment Start: 05/03/24 13:12 Freq: NEEDED Status: Active Protocol: Document 05/03/24 10:35 AB (Rec: 05/03/24 13:24 AB [id number]) Physical Therapy Treatment Education Education Provided Safety Equipment Issued Equipment Type and Company B axillary crutches: [employer] M7 PT-IP Assessment and Plan Start: 05/03/24 13:12 Freq: NEEDED Status: Active Protocol: Document 05/03/24 10:35 AB (Rec: 05/03/24 13:24 AB [id number]) PT Summary Assessment and Plan Potential Rehabilitation Potential Fair Status of Condition at Evaluation Stable Summary Impairments Pain,ROM,Strength,Balance, Coordination,Sensation,Tone, Cognition,Bed Mobility, Transfers,Gait,Activity Tolerance Goals Bed Mobility Goal Independent Transfer Goal Independent,Crutches Gait Goal Independent,Crutches Gait Distance 300 Other Goals up/down 10 steps 1 rail+ crutches mod I Days to Meet Goals 5 Frequency of Treatment Frequency Of Treatment Once a Day Treatment Plan Physical Therapy Treatment Plan Bed Mobility Training,Transfer Training,Gait Training, Therapeutic Exercise,Balance Retraining,Discharge Planning, Hot or Cold Pack,Neuromuscular Re-ed,Coordination Retraining ,Manual Therapy Weight Bearing Status Weight Bearing Status Weight Bear as Tolerated Allowed Weight Bearing Amount (enter % LLE WBAT or #) (%) Recommendations To Nursing Amount of Assist Needed Standby Assistance Discharge Recommendations PT Discharge Recommendations Home with Assistance, Outpatient PT Transportation Needs at Discharge Private Vehicle - PT assist 1 PA
[2024-05-03] MEDS: BUPRENORPHINE/NALOXONE 8MG/2MG 1 TAB SL (11:37)
[2024-05-03 12:00] VITALS: BP 126/82; PULSE 55; RESP 14; TEMP 36.7; O2SAT 100
--- NOTE | 2024-05-03 12:51 | P.DS_ITS ---
History of Present Illness History of Present Illness Date Patient Seen: 05/03/24 Chief complaint: 15-20ft fall Narrative: This is a 29 year old male with PMH of opiate use on suboxone therapy, prior EtOH use (last drink 3 mo ago) who presents after a fall from 15-20 feet. He fell onto his left side. He has left groin pain with movement, though improving since arrival to the ER. Workup only notable for a mildly displaced left inferior pubic ramus fracture, no seen on pelvis Xray but on CT. In the emergency room, he received an IV push of fentanyl, medicine was asked to evaluate for admission after that. Attempted additional oral pain medications, as patient is not willing to do oral opiates due to suboxone use and concern for addiction. He received 975 mg tylenol, hydroxyzine, robaxin, and toradol. After these medications, patient was able to stand with a walker, but still 9/10 pain on the L groin. Discharge Providers Provider Date of admission: 05/02/24 16:37 Discharge Date: 05/03/24 Consults: 05/02/24 14:12 Consult to Physical Therapy Evaluate & Treat Comment: help with mobilization after fall and ramus fx Physician Instructions: Evaluate and Treat 05/02/24 17:33 Consult to Physical Therapy Evaluate & Treat Comment: Physician Instructions: Evaluate and Treat 05/03/24 11:01 Consult to Physical Therapy Evaluate & Treat Comment: Physician Instructions: Crustches for home use Discharge provider: Tal Joshua DO Summary Hospital Course Discharge Diagnosis: 1. Mildly displaced L inferior pubic ramus fx, present on admission, traumatic due to fall from height 2. Opiate use on Suboxone Hospital Course: This is a 29-year-old male with a past medical history of opiate use on Suboxone who was admitted after traumatic fall from about 20 ft with a mildly displaced left inferior pubic ramus fracture and uncontrolled pain initially. He did have more improvement with oxycodone and controlling his pain, and he was evaluated by Physical therapy the following morning which he did quite well with. His pain was adequately controlled with multimodal pain management including Tylenol, naproxen, continued Suboxone at his previous home dosing, and oxycodone for breakthrough. The patient wished to discharge home at that time as he was mobilizing well. I encouraged him to establish care with a primary care provider, and he was recommended for outpatient continued physical therapy after discharge. Time Spent with Patient Time spent: Greater than 30 minutes Exam Vital Signs (past 8 hours): - 05/03/24 07:00 05/03/24 08:00 05/03/24 12:00 Temperature 97.7 F 98.0 F Pulse Rate 72 55 L Respiratory Rate 14 14 Blood Pressure 125/79 126/82 Pulse Oximetry 95 100 Oxygen Delivery Method Room Air Oxygen Flow Rate 0 0 Oxygen Delivery Method Room Air Oxygen Flow Rate 0 Narrative Exam Narrative: General:? Patient is well developed and well nourished, in no distress at this time. Chest:? Normal AP diameter and contour without kyphoscoliosis, no tachypnea, equal chest rise bilaterally. Lungs:? CTA b/l no wheezing rhonchi or rales. Cardio:?RRR no m/r/g. Abdomen: S NT ND. Musculoskeletal:? Muscle strength and tone are equal within normal limits, no deformity. Extremities: No edema or joint effusions. No cyanosis or clubbing. Skin:? Pale,? Warm to touch,dry and intact without rashes, ulcerations or petechiae.? Objective Labs 05/03/24 05:20 05/03/24 05:20 Labs: Laboratory Results - last 24 hr 05/03/24 05:20 WBC 5.4 RBC 4.77 Hgb 12.5 L Hct 37.1 L MCV 77.8 L MCH 26.3 MCHC 33.8 RDW 13.4 Plt Count 235 Neut % (Auto) 47.2 L D Lymph % (Auto) 37.7 [place] % (Auto) 12.2 Eos % (Auto) 2.2 Baso % (Auto) 0.7 Neut # (Auto) 2600 Lymph # (Auto) 2100 [place] # (Auto) 700 Eos # (Auto) 100 Baso # (Auto) 0 Sodium 139 Potassium 3.5 Chloride 103 Carbon Dioxide 28 BUN 14 Creatinine 0.86 Estimated GFR > 60 BUN/Creatinine Ratio 16.3 Glucose 93 Calcium 8.7 Magnesium 2.0 [facility] Medical History (Updated 05/02/24 @ 17:08 by Tal Joshua DO) Alcohol use Opiate use Social History (Updated 05/02/24 @ 17:09 by Tal Joshua DO) household members: family Smoking Status: Current every day smoker Smokeless tobacco user: other alcohol intake: former substance use type: opiates and other Discharge Plan Discharge Plan Patient Disposition: Home Provider Discharge Comment: You were admitted to the hospital after a fall and have a L pubic ramus fracture. Continue oxycodone with suboxone, but continue to decrease as tolerated and continue naproxen and tylenol at home. Please try to establish care with a primary care provider BABAK after discharge. Discharge orders & Medications Prescriptions: New acetaminophen [Acetaminophen Extra Strength] 500 mg tablet 1,000 mg PO Q6H 14 Days Qty: 100 0RF naproxen 500 mg tablet 500 mg PO BIDWM 30 Days Qty: 60 0RF oxycodone 10 mg Tablet 10 mg PO Q4HR PRN (Reason: Pain, Severe (7-10)) 7 Days Qty: 30 0RF Continued prazosin 1 mg capsule 1 mg PO ONCE PM hydroxyzine pamoate 25 mg capsule 25 mg PO DAILY PRN (Reason: anxiety) trazodone 50 mg Tablet 50 mg PO BEDTIME PRN (Reason: Insomnia) buprenorphine-naloxone 4-1 mg film 4 mg sublingual BID buprenorphine-naloxone 8-2 mg film 8 mg sublingual DAILY Rx Instructions: give at 12pm Diet/Activity/Treatments Diet: Diet as Tolerated and Regular Activity: As tolerated, no restrictions technically but will be limited by pain Visit Report/Discharge Packet Stand Alone Forms: Patient Portal/API, Stroke Signs & Symptoms Discharge Data Attending Provider: Tal Joshua Admit Date/Time: 05/02/24 16:37 Quality VTE Deep Vein Thrombosis/Pulmonary Embolism Present on Admission: No
--- NOTE | 2024-05-03 13:16 | CM.DANOTE ---
Addendum entered by ANDREW Wong 05/03/24 14:07: ADD: FMLA ppw and work release note given, light office duty okay starting 05/08 depending on patient's pain and mobility. Patient appreciative, family to transport home. Original Note: Discharge Planning/Care Management CM Discharge Assessment Start: 05/03/24 13:14 Freq: Status: Active Protocol: Document 05/03/24 13:14 DONN (Rec: 05/03/24 13:16 DONN [id number]) Discharge Planning Assessment Assigned Corporate Law Assistant ANDREW Vo DPOA/Assigned Designee Name Fouzia Coon Contact Information [phone] Advance Directives? No History Provided By Patient,Medical Record Prior Living Arrangements House Household Members family Type of transporation used prior to Drives own vehicle admit Independent with ADL's Yes Is patient alert and oriented? Yes Patient/Family Preference OP PT Therapy Barriers to Discharge No Comment Patient fell off a roof at his work and fractured his hip, non surgical. Patient plans to discharge with his local family members and will have local follow up. KELLY ppw completed and signed by Dr Joshua on patient's behalf. Patient states appreciation. No other needs from this CM team identified. Family to transport. Discharge Plan Home Transportation Arrangement Family Referrals Initiated None needed
--- NOTE | 2024-05-03 13:40 | PC.NURSE ---
Addendum entered by Cinthya Guerra R.N. 05/03/24 14:21: 1400 Patient off unit at this time via wheelchair. Patient in possession of requested L&I paperwork. Original Note: 1340 Patient discharge instructions given to patient. Paperwork signed and placed in chart. Patient verbalized understanding. IV to left AC removed and band-aid applied. Per case management, LA paperwork and doctor's note provided and given to patient. Patient with no questions or complaints at this time. Patient with all belongings in possession and is at the bedside.
--- NOTE | 2024-05-07 16:02 | CM.DPNOTE ---
DCP note Recieved notice from technology methodology consultant Mari of pt calling requesting updated work note. Per chart, work note cleared pt until 05/08 pending pain/mobilty. Per Tres note, estimated 6 weeks recovery time. STENOTYPE OPERATOR spoke with pt over the phone ([phone] [email or web address]). confirmed he is not able to mobility/remains in a lot of pain. f/u appt with orthopedic team is 05/23/2024. STENOTYPE OPERATOR emailed him work excuse letter with updated instructions to remain off work until orthopedic team clears him to return to work following OP follow up. Will continue to follow as needed ANDREW Bailey
== END 2024-05-03 14:00 | disposition home or self-care (01) ==
LOC: ED 14:12 → AC 16:37
PROVIDERS: Admitting Provider Internal Medicine; Emergency Provider Emergency Medicine; Referring Provider Emergency Medicine; Visit Provider Internal Medicine
DX: S32.592A Other specified fracture of left pubis, initial encounter for closed fracture (principal); M54.2 Cervicalgia; M54.9 Dorsalgia, unspecified; W13.2XXA Fall from, out of or through roof, initial encounter; Y93.H3 Activity, building and construction; Y92.61 Building [any] under construction as the place of occurrence of the external cause; F11.20 Opioid dependence, uncomplicated
CPT/HCPCS: 36415; 70450; 71260; 72125; 72170; 73100; 74177; 80048; 80053; 80305; 80320; 81001; 83605; 83690; 83735; 85014; 85018; 85025; 85610; 85730; 86850; 86900; 86901; 93005; 96372; 96374; 96375; 96376; 97161; 97530; 99285; 99291; G0378; A9270; G0390; J1650; J1885; J2405; J3010; Q9967